=== PATIENT | female | born 1965 | race Caucasian/White ===

== ENCOUNTER 2017-08-30 07:14 | Emergency (ER) | payer BC ==
[2017-08-30 07:27] VITALS: BP 104/64
--- NOTE | 2017-08-30 08:09 | ED ---
GI/ HPI - HPI Summary HPI Summary: 51 yr old with complaint of some chills, low back ache, frequency of urination, and feeling tired. she states she feels she has a UTI. 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 She states she is a diabetic. - History of Current Complaint Chief Complaint: UCGU Time Seen by Provider: 08/30/17 07:36 Stated Complaint: URINARY Hx Last Menstrual Period: n/a - Allergy/Home Medications Allergies/Adverse Reactions: Allergies Allergy/AdvReac Type Severity Reaction Status Date / Time environmental Allergy Congestion Uncoded 08/30/17 07:27 PMH/Surg Hx/FS Hx/Imm Hx Endocrine/Hematology History: Reports: Hx Diabetes - type 2 Denies: Hx Thyroid Disease Cardiovascular History: Reports: Hx Hypertension - CONTROLLED WITH MEDICATION Denies: Hx Pacemaker/ICD Respiratory History: Reports: Hx Asthma Denies: Hx Lung Cancer GI History: Denies: Hx Gall Bladder Disease, Hx Gastrointestinal Bleed, Hx Ulcer, Hx Urosepsis History: Denies: Hx Kidney Stones, Hx Renal Disease Sensory History: Denies: Hx Hearing Aid Neurological History: Denies: Hx Transient Ischemic Attacks (TIA) Psychiatric History: Denies: Hx Anxiety, Hx Panic Disorder - Cancer History Hx Chemotherapy: No Hx Radiation Therapy: No - Surgical History Surgery Procedure, Year, and Place: LT LEG SURGERY 1983; Right thumb and wrist [address] Eliz HARRELL Infectious Disease History: No Infectious Disease History: Denies: Traveled Outside the [place] in Last 30 Days - Family History Known Family History: Positive: None - Social History Alcohol Use: Rare Substance Use Type: Reports: None Smoking Status (MU): Never Smoked Tobacco Have You Smoked in the Last Year: No Review of Systems Positive: Chills Positive: dysuria, flank pain All Other Systems Reviewed And Are Negative: Yes Physical Exam Triage Information Reviewed: Yes Vital Signs On Initial Exam: Initial Vitals Temp Pulse Resp BP Pulse Ox 98.4 F 77 16 104/64 99 08/30/17 07:22 08/30/17 07:22 08/30/17 07:22 08/30/17 07:22 08/30/17 07:22 Vital Signs Reviewed: Yes Appearance: Positive: Well-Appearing, No Pain Distress Skin: Positive: Warm, Skin Color Reflects Adequate Perfusion Head/Face: Positive: Normal Head/Face Inspection Eyes: Positive: EOMI ENT: Positive: Normal ENT inspection Neck: Positive: Nontender Respiratory/Lung Sounds: Positive: Clear to Auscultation, Breath Sounds Present Cardiovascular: Positive: RRR. Negative: Murmur Abdomen Description: Positive: Nontender Musculoskeletal: Positive: Strength/ROM Intact Neurological: Positive: Sensory/Motor Intact, Alert, Oriented to Person Place, Time, CN Intact II-III Psychiatric: Positive: Normal - Wiseman Coma Scale Best Eye Response: 4 - Spontaneous Best Motor Response: 6 - Obeys Commands Best Verbal Response: 5 - Oriented Diagnostics - Vital Signs Vital Signs Temp Pulse Resp BP Pulse Ox 08/30/17 07:22 98.4 F 77 16 104/64 99 - Laboratory Lab Statement: Any lab studies that have been ordered have been reviewed, and results considered in the medical decision making process. GIGU Course/Dx - Course Course Of Treatment: 51 yr old with UTI symptoms and she states her urine culture grew out e coli - Diagnoses Provider Diagnoses: UTI (urinary tract infection) Discharge - Discharge Plan Condition: Good Disposition: HOME Prescriptions: Ciprofloxacin TAB* [Cipro 500 MG TAB*] 500 mg PO BID #14 tab Patient Education Materials: Urinary Tract Infection in Women (ED) Referrals: Teresa Patel MD [Primary Care Provider] - 3 Days
--- NOTE | 2017-09-02 07:42 | UC ---
Progress - Progress Note Progress Note: Notify pt NO UTI she can STOP antibiotic(especially if she has already had 3 doses) and get rechecked if still symptomatic
== END 2017-08-30 08:35 | disposition home or self-care (01) ==
LOC: UCCORT 07:14
DX: N39.0 Urinary tract infection, site not specified (principal); E11.9 Type 2 diabetes mellitus without complications; I10 Essential (primary) hypertension; J45.909 Unspecified asthma, uncomplicated
CPT/HCPCS: 81003; 87086; 99212; G0463

== ENCOUNTER 2019-01-09 19:08 | Emergency (ER) | payer BC ==
[2019-01-09 19:37] VITALS: BP 127/60
[2019-01-09] MEDS ORDERED: predniSONE TAB* 20 MG PO ONE (20:01)
--- NOTE | 2019-01-09 20:08 | UC ---
Skin Complaint HPI - HPI Summary HPI Summary: patient has been using KP tape for her tendonitis, developed a reash 2 days ago , very itchy and raised - History of Current Complaint Chief Complaint: UCSkin Time Seen by Provider: 01/09/19 19:59 Stated Complaint: SKIN CONCERN - LEFT ARM Hx Obtained From: Patient Hx Last Menstrual Period: n/a ?: No Onset/Duration: Sudden Onset, Lasting Days Skin Exposure Onset/Duration: Days Ago Timing: Constant Onset Severity: Mild Current Severity: Moderate Pain Intensity: 0 Location: Discrete Character: Pruritus, Redness, Raised Aggravating Factor(s): Nothing Alleviating Factor(s): Nothing Associated Signs & Symptoms: Positive: Rash Related History: Other: - tape - Allergy/Home Medications Allergies/Adverse Reactions: Allergies Allergy/AdvReac Type Severity Reaction Status Date / Time environmental Allergy Congestion Uncoded 01/09/19 19:22 Home Medications: Home Medications Balsalazide Sodium CAP(NF) [Colazal CAP(NF)] 3 cap PO BID 01/09/19 [History Confirmed 01/09/19] Hydrocortisone 0.5% CM(NF) [Hydrocortisone 0.5% CREAM(NF)] 1 applic .SEE ORDER PRN 01/09/19 [History] PMH/Surg Hx/FS Hx/Imm Hx Previously Healthy: Yes Other History Of: Negative For: HIV - Surgical History Surgical History: Yes Surgery Procedure, Year, and Place: LT LEG SURGERY 1983; Right thumb and wrist [address] [place] SOS - Family History Known Family History: Negative: Cardiac Disease, Hypertension - Social History Alcohol Use: Rare Substance Use Type: None Smoking Status (MU): Never Smoked Tobacco Have You Smoked in the Last Year: No Review of Systems All Other Systems Reviewed And Are Negative: Yes Skin: Positive: Rash Is Patient Immunocompromised?: Yes - diabetes Physical Exam Triage Information Reviewed: Yes Appearance: Well-Appearing, Well-Nourished, Pain Distress Vital Signs: Initial Vital Signs Temp 98.1 F 01/09/19 19:27 Pulse 67 01/09/19 19:27 Resp 17 01/09/19 19:27 BP 127/60 01/09/19 19:27 Pulse Ox 99 01/09/19 19:27 Vital Signs Reviewed: Yes Eye Exam: Normal ENT Exam: Normal Dental Exam: Normal Neck exam: Normal Respiratory Exam: Normal Respiratory: Positive: Chest non-tender, Lungs clear, Normal breath sounds Cardiovascular Exam: Normal Cardiovascular: Positive: RRR, No Murmur, Pulses Normal Abdominal Exam: Normal Musculoskeletal Exam: Normal Neurological: Positive: Other: - 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 Psychological Exam: Normal Skin: Positive: Other - rash on the left forearm from elbow to mid wrist, raised red, no sign of infection Course/Dx - Course Course Of Treatment: hx obtained, exam performed ,meds reviewed, treated for contact dermatitis from the taping to the elbow, does not appear infectious - Differential Diagnoses - Skin Complaint Differential Diagnoses: Cellulitis, Contact Dermatitis, Urticaria - Diagnoses Provider Diagnosis: Contact dermatitis Discharge - Sign-Out/Discharge Documenting (check all that apply): Patient Departure All imaging exams completed and their final reports reviewed: No Studies - Discharge Plan Condition: Stable Disposition: HOME Prescriptions: Betamethasone Dip 0.05% ON(NF) [Betamethasone Dipr 0.05% OINT(NF)] 1 applic TOPICAL BID #1 tube predniSONE [Prednisone 20 MG TAB] 20 mg PO DAILY #18 tablet Patient Education Materials: Contact Dermatitis (DC) Referrals: Teresa Patel MD [Primary Care Provider] - Additional Instructions: 1. use the cream and oral medication as prescribed. 2. Cool compresses to help with the itching 3. Follow up if there is any increase in warmth, redness, swelling or pain - Billing Disposition and Condition Condition: STABLE Disposition: Home
== END 2019-01-09 20:12 | disposition home or self-care (01) ==
LOC: UCCORT 19:08
DX: L25.9 Unspecified contact dermatitis, unspecified cause (principal)
CPT/HCPCS: 99212; G0463; J7512